=== PATIENT | male | born 1965 | race Caucasian/White ===

== ENCOUNTER 2018-02-01 08:34 | Outpatient (CLI) | payer OTHER, SELFPAY ==
[2018-02-01 11:45] LABS: Uric Acid 6.4 mg/dL (3.5-7.2)
== END 2018-02-01 08:54 ==
PROVIDERS: PCP Emergency Medicine; Visit Provider Emergency Medicine
DX: E79.0 Hyperuricemia without signs of inflammatory arthritis and tophaceous disease (principal)
CPT/HCPCS: 84550

== ENCOUNTER 2019-07-13 01:17 | Outpatient (CLI) | payer BC, SELFPAY ==
--- NOTE | 2019-07-13 08:00 | ETT_ITS ---
APPROVED REPORT Exam: Exercise Treadmill Patient Location: Out-Patient Room/Bed: Stress Nurse: Nadya Fuentes RN BMI: 29.79 Baseline Rhythm: Sinus Rhythm with abnormal R wave progression. Indications: Patient testing today for further risk stratification as he has a strong family history of heart disease. Patient states he had left sided ???burning/sharp??? chest pain approximately 2 wee ks ago after snow plowing with his 4 chapman. Medical History Medical History: Obstructive sleep apnea Cardiac Medications: Losartan Allergies: No known drug allergies Cardiac Risk Factors: HTN, FHX of CAD Previous Cardiac Procedures: None Pretest Chest Pain Characteristics: None Exercise History: Physically active Physical Disabilities: None Lung Sounds: Clear to auscultation Heart Sounds: Regular Stress Test Details Test: Exercise stress testing was performed using a Javier protocol. Rest Stress HR Resting HR Supine: 78 bpm Max Heart Rate (APMHR): 164 bpm Resting HR Standin bpm Target HR (85% APMHR): 139 bpm Max HR Achieved: 156 bpm % of APMHR: 95 HR response to stress: Normal HR response to stress BP Resting BP Supine: 146/86 mmHg Resting BP Standin/90 mmHg Max BP: 200/90 mmHg BP response to stress: Normal reponse to BP with recovery. Comment: Having difficulty hearing BP's with exercise. ECG Resting ECG: Sinus Rhythm Comment: No significant ST segment changes noted. Stress ECG: Sinus Tachycardia ST Change: No significant ST segment changes noted. Arrhythmia: None Recovery ECG: Sinus Rhythm Recovery ST Change: No significant ST segment changes noted. Recovery Arrhythmia: None Clinical Reason for Termination: Fatigue, Dyspnea Stress Symptoms: None Exercise duration: 10 min25 sec Highest Stage Reached: Stage 3: 3.4 mph at 14% grade. Exercise capacity: 12.49 METs Functional Capacity: Average Capacity Stress ECG Conclusion 1. The patient exercised for 10 minutes and 25 seconds (12 METS). Exercise was stopped due to fatigu e. Rate-pressure product was 22,000. 2. There was no evidence of ischemia on the ECG. There were no symptoms suggestive of ischemia. 3. The Parks Score ( 10) estimates an annual cardiovascular mortality of 0% and a five year survival o f 96%. Using the Parks Score there is a low probability of any angiographic coronary disease. Protocol Used: Javier Protocol Stress Test Summary STAGE Time (mins) Speed (mph) Grade (%) HR BP SYMPTOMS METS Supine 78 146/86 Standing 77 130/90 1 3 1.7 10 104 140/80 4.6 2 6 2.5 12 7 3 9 3.4 14 125 140/70 10.2 4 12 4.2 16 12.9 5 15 5.0 18 17.2 1 min recovery 118 200/90 3 min recovery 97 166/90 6 min recovery 90 156/86 9 min recovery 92 156/90
== END 2019-07-13 01:37 ==
PROVIDERS: PCP Emergency Medicine; Visit Provider Family Medicine
DX: R07.89 Other chest pain (principal); I10 Essential (primary) hypertension; Z82.49 Family history of ischemic heart disease and other diseases of the circulatory system
CPT/HCPCS: 93017

== ENCOUNTER 2019-12-09 15:07 | Outpatient (REF) | payer BC, SELFPAY ==
[2019-12-09 22:46] LABS: Uric Acid 6.8 mg/dL (3.5-7.2)
[2019-12-10 18:17] LABS: PSA, Screening 0.7 ng/mL (0.0-3.5)
== END 2019-12-09 15:27 ==
LOC: LBN 15:07
PROVIDERS: PCP Emergency Medicine; Visit Provider Emergency Medicine
DX: Z12.5 Encounter for screening for malignant neoplasm of prostate (principal); M10.9 Gout, unspecified; Z12.11 Encounter for screening for malignant neoplasm of colon
CPT/HCPCS: 84153; 84550

== ENCOUNTER 2021-01-23 03:42 | Outpatient (CLI) | payer BC, SELFPAY ==
[2021-01-23 10:35] LABS: Source Nasal/Nares
[2021-01-23 12:50] LABS: COVID-19 PCR Negative (Negative)
== END 2021-01-23 03:43 | disposition home or self-care (01) ==
LOC: LBO 03:43
PROVIDERS: PCP Emergency Medicine; Visit Provider Surgery
DX: Z20.822 Contact with and (suspected) exposure to COVID-19 (principal); Z01.818 Encounter for other preprocedural examination
CPT/HCPCS: 87635

== ENCOUNTER 2021-01-24 08:15 | Day surgery (SDC) | payer BC, SELFPAY ==
--- NOTE | 2021-01-23 09:56 | W.COLOREPORT ---
Colonoscopy Report Date of procedure: 01/24/21 Pre-op diagnosis general: CRC screen Post-op diagnosis procedure note: other (polyps and diverticula ) Surgeon: Jailene Cortez Anesthesia Type: General LMA/ETT Estimated blood loss (mL): 1 Pathology: none sent Complications: None Disposition: same day Prep: Miralax/Dulcolax Retraction Time: 12 mins Procedure Description: After informed consent was obtained the patient was taken to the procedure room and placed in a left decubitous position. Monitors were applied and a time out was done. The patients name, date of , procedure, allergies to medications and metal in their body was reviewed. The patient was then sedated. Once sedated and comfortable a rectal exam was done. External exam was normal. Internal exam revealed a normal sphincter tone and no palpable masses. The scope was then introduced and retrofelexed. Grade I internal hemorrhoids were identified. The scope was then advanced to the cecum w/out difficulty. The TI and appendiceal orifice were identified. There are x2 flat 5mm flat polyps. Both removed w/ a cold forcept in the cecum. He has another flat 1 cm polyp at 80 cm. This is removed with multiple bites of a hot forcep. A clip was placed over the defect. All specimen is retrieved and no bleeding is noted. This does have the appearance of the serrated. He does have a few small minor diverticula confined to the sigmoid colon. There is no signs of active bleeding or infection. The mucosa appears pink and healthy. The prep was good. The scope was then slowly retracted over 12 minutes back into the rectum. The scope was removed and the patient was woken up and taken back to Same day surgery in stable condition. The patient tolerated the procedure well and there were no immediate complications. Follow up: The patient should follow up in 5 years time, path pd, unless they develop changes in bowel habits or other new gastrointestinal complaints.
--- NOTE | 2021-01-23 09:57 | PDOC.DSDIS_ITS ---
Discharge Plan Disposition Patient Disposition: HOME Condition: Good Discharge Details Reason For Visit: colon scope Attending Provider: Jailene Cortez Primary Care Provider: Zeeshan Pendleton Home Meds and New Rx's Prescriptions: Continued sildenafil [Viagra] 100 mg tablet 100 mg PO DAILY PRN (Reason: sexual activity) Qty: 4 RF: 5 multivitamin 1 EACH capsule 1 ea PO DAILY RF: 0 apple cider vinegar 300 MG tablet 300 mg PO DAILY RF: 0 Tart Shoemaker Extract 1,000 MG capsule 1,000 mg PO DAILY RF: 0 losartan 100 mg tablet 100 mg PO QAM Qty: 90 RF: 3 indomethacin 50 mg capsule 50 mg PO TID PRN (Reason: gout) Qty: 30 RF: 2 allopurinol 100 mg tablet 100 mg PO DAILY Qty: 90 RF: 6 Discontinued polyethylene glycol 3350 17 gram/dose powder 238 g PO ONCE Qty: 238 RF: 0 bisacodyl [Dulcolax (bisacodyl)] 5 mg tablet,delayed release (DR/EC) 5 mg PO ONCE Qty: 4 RF: 0 Discharge Instructions Additional Instructions: DSU Colonoscopy Post- Op Instructions Instructions for Everyone who is given Anesthesia: For your safety, please do the following for the next twenty-four (24) hours: *Do Not operate a motor vehicle (car, truck, motorcycle, etc.) *Do Not drink alcoholic beverages or use any recreational drugs for the first 24 hours or while taking pain medications. The medications in your body may have a reaction that can be dangerous. *Do Not make any important decisions or sign any important papers. Findings:diverticula polyps x3 Follow up: My office will send a letter in approximately 3 weeks time, detailing as to what type of polyps we found, and when we want you to repeat colonoscopy. 1. No lifting over 20 pounds or strenuous activity for the first 24 hours after your procedure. After 24 hours there are no restrictions on your activity but you may feel fatigued for a few days. 2. After you arrive home you may have a light meal and return to your normal diet as you can tolerate it without feeling sick to your stomach. 3. You may have a bloated, gaseous feeling in your belly (abdomen) after a colonoscopy. Passing gas and belching will help. Walking or lying down on your left side with your knees flexed may relieve the discomfort. Call the office at [phone] (Office) or [phone] (Hospital) right away if you notice any of the following: a.Vomiting of blood or ?coffee ground stools?. b.Rectal bleeding 1Tbsp, blood clots or continuous bleeding. c.Severe belly (abdominal) pain. d.A hard distended belly (abdomen) and an inability to pass gas. 4. Please don?t expect to have a normal BM (bowel movement) for 2-3 days after your procedure. 5. If there are questions regarding the findings of your procedure, please contact your doctor 6. If you are unable to contact your doctor with a problem, contact the hospital at [phone]. 7. Continue all your regular medications unless directed otherwise. I understand the above instructions and have no questions. Signature of Patient or Adult Escort Name of Responsible Adult Escort Signature of Nurse Date/Time Activity:: see above Diet:: see above Discharge Orders Discharge Orders: Discharge Order (Routine); Ordered 01/23/21 Ordered By: Jailene Cortez DS: Diagnosis Discharge Diagnosis (1) Adenomatous polyps: Status: Acute (2) Diverticula of colon: Status: Acute
[2021-01-24 08:30] VITALS: BP 148/91; PULSE 77; RESP 18; TEMP 36.6; O2SAT 98
[2021-01-24] MEDS: Lactated Ringers 1,000 ML 80 ML IV (08:56)
--- NOTE | 2021-01-24 08:56 | W.ANESPRE ---
General Info Date of Service Date Performed: 01/24/21 Height: 5 ft 8 in Weight: 88.3 kg Body Mass Index (BMI): 29.5 Surgical Procedure: Operation Date: 01/24/21 10:20 Proposed Procedures Side Surgeon rocío Cortez, DO Meds Allergies and Home Medications Allergies Allergy/AdvReac Type Severity Reaction Status Date / Time No Known Allergies Allergy Verified 01/24/21 08:40 Home Medication Medication Instructions Recorded apple cider vinegar 300 mg PO DAILY 07/14/13 multivitamin 1 ea PO DAILY 07/14/13 sour shoemaker extract [Tart Shoemaker 1,000 mg PO DAILY 08/06/17 Extract] losartan 100 mg tablet 100 mg PO QAM #90 tab-cap 03/25/20 bisacodyl 5 mg tablet,delayed 5 mg PO ONCE #4 tab 06/16/20 release polyethylene glycol 3350 17 238 g PO ONCE #238 g 06/16/20 gram/dose oral powder indomethacin 50 mg capsule 50 mg PO TID PRN #30 tab-cap 06/22/20 sildenafil 100 mg tablet 100 mg PO DAILY PRN #4 tab 01/05/21 allopurinol 100 mg tablet 100 mg PO DAILY #90 tab-cap 01/17/21 Current Visit Medications: Current Medications Generic Name Dose Route Start Last Admin Trade Name Freq PRN Reason Stop Dose Admin Hyoscyamine Sulfate 0.125 mg 01/23/21 09:56 Hyoscyamine 0.125 Mg Sl/Oral/Chew SL DIRECTED PRN Ringer's Solution 1,000 mls @ 80 mls/hr 01/24/21 06:00 IV 02/22/21 23:59 INFUSION [facility] IV Miscellaneous Supplies 1 each 01/24/21 06:00 Iv Access IV 02/22/21 23:59 DIRECTED VARSHA Ondansetron HCl 4 mg 01/23/21 09:56 Ondansetron 4 Mg/2 Ml Vial IVP Q4H PRN PRN Nausea / Vomiting Sodium Chloride 0 ml 01/24/21 06:00 Normal Saline Flush 10 Ml Syr IV 02/22/21 23:59 PRN PRN Sodium Chloride 0 ml 01/24/21 06:00 Normal Saline 10 Ml Vial IJ 02/22/21 23:59 DIRECTED PRN Sterile Water 0 ml 01/24/21 06:00 Water,Injection,Sterile 10 Ml Vial IJ 02/22/21 23:59 DIRECTED PRN [facility] Active Problems Active Problems: Problem Status Onset Code Murmur, cardiac R01.1 Impingement syndrome of right shoulder M75.41 Actinic keratosis due to exposure to sunlight L57.0, X32.XXXA Colon cancer screening Z12.11 H/O nonmelanoma skin cancer 07/14/13 Z85.828 Obstructive sleep apnea syndrome G47.33 Nasal septal deviation J34.2 Lazy eye H53.009 Heavy alcohol use 12/07/15 Z78.9 Gouty arthritis of toe M10.9 Gout 06/04/12 M10.9 Family history of heart disease Z82.49 Essential hypertension I10 Medical History Medical History Actinic keratosis due to exposure to sunlight Colon cancer screening Impingement syndrome of right shoulder Murmur, cardiac Surgical History Surgical History Appendectomy 03/16/14 Excision, Skin Mass CANCER Tobacco Smoking/Tobacco Use Status: Never Smokeless tobacco user: snus Passive smoking exposure: Yes Second hand exposure: Yes Alcohol Alcohol Intake: current Alcohol intake frequency: 3 or more drinks per day Alcohol type: beer Substance Use Substance use: Never Substance use type: marijuana Vital Signs and Lab Results Vital Signs Most Recent Vital Signs in EMR: Most Recent Vital Signs Temp Pulse Resp BP Pulse Ox 36.6 C 77 18 148/91 H 98 01/24/21 08:30 01/24/21 08:30 01/24/21 08:30 01/24/21 08:30 01/24/21 08:30 Lab Results Blood Type / Crossmatch: No Data to Display Complete Blood Count: No Data to Display Complete Metabolic Panel: No Data to Display Liver Function Panel: No Data to Display Coagulation Panel: No Data to Display Cardiac Panel: No Data to Display Arterial Blood Gas: No Data to Display Venous Blood Gas: No Data to Display Pancreas Panel: No Data to Display Thyroid Panel: No Data to Display Infectious Disease: Coronavirus (COVID-19)(PCR) Negative (Negative) 01/23/21 09:05 01/23/21 Coronavirus 2019 Source Nasal/Nares 01/23/21 09:05 01/23/21 Blood Cultures: No Data to Display Toxicology Panel: No Data to Display Imaging and Studies Imaging and Studies Stress Test Summary: 07/13/19: Stress ECG Conclusion 1. The patient exercised for 10 minutes and 25 seconds (12 METS). Exercise was stopped due to fatigue. Rate-pressure product was 22,000. 2. There was no evidence of ischemia on the ECG. There were no symptoms suggestive of ischemia. 3. The Parks Score ( 10) estimates an annual cardiovascular mortality of 0% and a five year survival of 96%. Using the Parks Score there is a low probability of any angiographic coronary disease. Anesthesia Assessment and Plan Anesthesia History Personal History: No History of Anesthesia Complications Family History: No Family History of Anesthesia Complications Exercise Tolerance Exercise Tolerance: Metabolic Equivalents>4 Pertinent Negatives Pertinent Negatives: No Symptoms of GERD Cardiac & Pulmonary Exam Cardiac Exam: Normal S1/S2 Heart Sounds Pulmonary Exam: Clear Bilateral Breath Sounds Airway Exam Known Difficult Airway: No Mallampati Class: 2 Mouth Opening: Normal (> 3cm) Thyromental Distance: Greater than 3 cm Neck Range of Motion: Full ROM Neck Circumference: Normal Teeth Condition: Normal Dentition ASA Classification ASA Score: ASA 2 Emergency Case?: No NPO Status NPO Status: NPO Clears >2 hours, Solids >8 hours Anesthesia Plan Resuscitation Status: Full Code Anesthesia Technique: General Anesthesia Airway Planned: Natural Airway Monitors Used: Standard Monitors
[2021-01-24 09:36] VITALS: BMI 29.5
--- NOTE | 2021-01-24 10:07 | BOWEL_PTH ---
PATIENT: Ector Adames LOC: [facility] U#:[id number] AGE/SX: 55/M ROOM: RE01/24/[address]: Jailene Cortez : 1965 BED: DIS: 01/24/2021 SPEC #: [id number] RECD: 01/24/21 12:43 STATUS: RUFINO REQ #: [id number] KANDIS: 01/24/21 10:[address]: Jailene Cortez DEPT: Surgical Specimen RECD BY: Ana Pulido ENTERED: 01/24/21 12:44 SP TYPE: Bowel OTHR DR: Zeeshan Pendleton DO Tissues: 1 - BIOPSY BOWEL 2 - BIOPSY BOWEL Procedures: GROSS AND MICRO LEVEL 4 Comments: [id number]
[2021-01-24 10:37] VITALS: BP 105/60; PULSE 62; RESP 16; TEMP 36; O2SAT 97
[2021-01-24 11:05] VITALS: BP 107/68; PULSE 58; RESP 16; TEMP 36; O2SAT 98
--- NOTE | 2021-01-24 15:53 | W.ANESPOSTOP ---
Postoperative Evaluation Date, Time and Location Date Performed: 01/24/21 Time Performed: 11:10 Patient Location: Day Surgery Unit Vital Signs Most Recent Imported Vital Signs: Most Recent Vital Signs Temp Pulse Resp BP Pulse Ox 36 C L 58 L 16 107/68 98 01/24/21 11:05 01/24/21 11:05 01/24/21 11:05 01/24/21 11:05 01/24/21 11:05 Pain Score Most Recent Pain Score: Most Recent Pain Score Pain Level 0 01/24/21 11:05 Assessment Mental Status: Awake (Alert & Oriented to Patient Baseline) Airway and Respiratory Function: Patent airway with normal (patient baseline) respiratory exam Cardiovascular Function: Hemodynamically Stable Hydration Status: Adequately Hydrated Nausea & Vomiting: No Nausea or Vomiting Pain: Pt. Denies Any Pain Peripheral Nerve Block: Patient did not receive a nerve block
== END 2021-01-24 08:16 | disposition home or self-care (01) ==
PROVIDERS: PCP Emergency Medicine; Visit Provider Surgery
PROC: 0DJD8ZZ Inspection of Lower Intestinal Tract, Via Natural or Artificial Opening Endoscopic (ICD-10-PCS; CPT 45378; principal; 2021-01-24 10:15)
DX: Z12.11 Encounter for screening for malignant neoplasm of colon (principal); D12.0 Benign neoplasm of cecum; K57.30 Diverticulosis of large intestine without perforation or abscess without bleeding; I10 Essential (primary) hypertension; D12.5 Benign neoplasm of sigmoid colon
CPT/HCPCS: 45384; 45380; 88305; J2704

== ENCOUNTER 2021-06-27 20:07 | Outpatient (CLI) | payer BC, SELFPAY ==
--- NOTE | 2021-06-27 15:00 | DI.RAD_ITS ---
Exam(s) XR SHOULDER RT COMPLETE 2+V EXAM: XR SHOULDER RT COMPLETE 2+V CLINICAL HISTORY: right shoulder pain, M25.511. TECHNIQUE: 2D digital imaging was performed. COMPARISON: No exams were available for comparison FINDINGS: No evidence of fracture or dislocation or abnormal soft tissue calcifications. No obvious degenerati ve changes in the glenohumeral joint. Mild degenerative changes in the AC joint. No osseous lesions. IMPRESSION: DATA REPOSITORY: RADIATION DOSE DELIVERED:
== END 2021-06-27 20:27 ==
PROVIDERS: PCP Emergency Medicine; Visit Provider Emergency Medicine
DX: M25.511 Pain in right shoulder (principal)
CPT/HCPCS: 73030

== ENCOUNTER → 2021-08-17 01:09 | Outpatient (CLI) | payer BC, SELFPAY ==
--- NOTE | 2021-08-17 15:35 | DI.MRI_ITS ---
Exam(s) MR UPPER JOINT RT WO EXAM: MR UPPER JOINT RT WO CLINICAL HISTORY: Weakness,RT ROTATOR CUFF TEAR,M75.101. TECHNIQUE: Multiplanar multisequence MRI was performed. COMPARISON: CR XR SHOULDER RT COMPLETE 2+V from 06/27/2021 FINDINGS: BONES: There is no fracture or contusion pattern. Small subchondral cysts are seen in the greater tub erosity. JOINTS: Moderate degenerative changes are seen at the acromioclavicular joint. There is superior sub luxation of the humeral head narrowing the acromial humeral interval consistent with a rotator cuff t ear. TENDONS: Supraspinatus: There is a complete tear of the supraspinatus tendon with retraction almost to the lev el of the glenohumeral joint. Infraspinatus: There is tendinosis of the infraspinatus tendon. There also appears to be a partial t ear of the infraspinatus tendon anteriorly. Subscapularis: There is tendinosis of the subscapularis tendon. Teres Minor: Unremarkable. Biceps and [place]: There is medial subluxation of the biceps tendon and tendinosis of the long head. MUSCLES: There is mild fatty atrophy of the subscapularis and supraspinatus muscles. GLENOID LABRUM: Unremarkable on this noncontrast examination. SOFT TISSUES: Unremarkable. LIGAMENTS: Medial subluxation of the biceps tendon suggesting a tear of the transverse ligament. OTHER: There is fluid in the subacromial subdeltoid bursa consistent with a full-thickness rotator cu ff tear. IMPRESSION: 1. There is a complete tear of the supraspinatus tendon with retraction almost to the level of the gl enohumeral joint. 2. Partial tear of the superior medial aspect of the infraspinatus tendon. 3. Tendinosis of the infraspinatus and subscapularis tendons. 4. Medial subluxation of the biceps tendon. 5. Superior subluxation of the humeral head and fluid in the subacromial subdeltoid bursa consistent with a rotator cuff tear. DATA REPOSITORY:
== END ==
PROVIDERS: PCP Family Medicine; Visit Provider Student in an Organized Health Care Education/Training Program
DX: M25.511 Pain in right shoulder; M75.101 Unspecified rotator cuff tear or rupture of right shoulder, not specified as traumatic; M75.81 Other shoulder lesions, right shoulder; M67.813 Other specified disorders of tendon, right shoulder
CPT/HCPCS: 73221

== ENCOUNTER 2021-09-27 02:17 | Outpatient (CLI) | payer BC, SELFPAY ==
[2021-09-27 10:14] LABS: Source Nasal/Nares
[2021-09-27 16:03] LABS: COVID-19 PCR Negative (Negative)
== END 2021-09-27 02:18 | disposition home or self-care (01) ==
LOC: LBO 02:17
PROVIDERS: PCP Nurse Practitioner Family; Visit Provider Student in an Organized Health Care Education/Training Program
DX: Z20.822 Contact with and (suspected) exposure to COVID-19 (principal); Z01.818 Encounter for other preprocedural examination
CPT/HCPCS: 87635

== ENCOUNTER 2021-09-27 02:41 | Outpatient (CLI) | payer BC, SELFPAY ==
[2021-09-27 08:41] LABS: Abs Immature Grans 0.02 10^3/uL (0.0-0.06); Absolute Basophil Count 0.04 10^3/uL (0.0-0.2); Absolute Eosinophil Count 0.11 10^3/uL (0.0-0.7); Absolute Lymphocyte Count 0.67 10^3/uL (1.2-3.4); Absolute Monocyte Count 0.36 10^3/uL (0.1-0.8); Absolute Neutrophil Count 3.34 10^3/uL (1.2-6.7); Basophils % 0.9; Eosinophils % 2.4; HCT 40.9 % (40.0-50.0); HGB 14.4 g/dL (13.5-17.5); Immature Grans % 0.4; Lymphocytes % 14.8; MCH 33.6 pg (27.0-33.0); MCHC 35.2 % (32.0-36.0); MCV 95 fL (80-95); MPV 10.9 fL (8.0-11.0); Monocytes % 7.9; Neutrophils % 73.6; Platelet Count 203 10^3/uL (130-400); RBC 4.29 10^6/uL (4.36-5.78); RDW 12.3 % (11.8-14.1); RDW-SD 42.7 fL; WBC 4.54 10^3/uL (4.4-10.8)
[2021-09-27 08:58] LABS: ALT 29 U/L (16-63); AST 15 U/L (15-37); Alkaline Phosphatase 82 U/L (46-116); Anion Gap 8.2 mmol/L (3-11); BUN 18 mg/dL (7-18); Bilirubin, Total 1.2 mg/dL (0.2-1.0); CO2 27.8 mmol/L (21.0-32.0); CREATININE 1.2 mg/dL (0.70-1.30); Calcium 9.3 mg/dL (8.5-10.1); Calculated LDL 113 mg/dL (<100); Chloride 105 mmol/L (98-107); Cholesterol 195 mg/dL (<200); Glucose 101 mg/dL (74-106); HDL Cholesterol 52 mg/dL (40-60); Potassium 4.3 mmol/L (3.5-5.1); Sodium 141 mmol/L (136-145); Total Protein 7.6 g/dL (6.4-8.2); Triglyceride 150 mg/dL (<150)
[2021-09-27 09:06] LABS: Uric Acid 7.2 mg/dL (3.5-7.2)
[2021-09-27 18:04] LABS: PSA, Screening 0.9 ng/mL (<=3.5)
[2021-09-28 10:10] LABS: HIV-1/2 Ag & Ab Screen Negative (Negative)
[2021-09-28 10:20] LABS: Hepatitis C Ab w Rflx HCV PCR Negative (Negative)
== END 2021-09-27 02:42 | disposition home or self-care (01) ==
LOC: LBO 02:41
PROVIDERS: PCP Nurse Practitioner Family; Visit Provider Family Medicine
DX: I10 Essential (primary) hypertension (principal); M10.9 Gout, unspecified; Z11.4 Encounter for screening for human immunodeficiency virus [HIV]; Z11.59 Encounter for screening for other viral diseases; Z12.5 Encounter for screening for malignant neoplasm of prostate
CPT/HCPCS: 36415; 80053; 80061; 84153; 86803; 87389; 84550; 85025

== ENCOUNTER 2021-09-29 06:04 | Day surgery (SDC) | payer BC, SELFPAY ==
[2021-09-29] VITALS (8 sets, daily range): BP systolic 100–146; BP diastolic 61–93; PULSE 71–79; RESP 16–23; TEMP 36.2–36.7; O2SAT 93–98; BMI 30.5
--- NOTE | 2021-09-29 06:18 | W.ANESPRE ---
General Info Date of Service Date Performed: 09/29/21 Height: 5 ft 8 in Weight: 91.172 kg Body Mass Index (BMI): 30.5 Surgical Procedure: Operation Date: 09/29/21 07:40 Proposed Procedure Side Surgeon p Shoulder Rotator Cuff Arthroscopic w/Extensive Debridement,Bicep Tenodesis,Subacromial Decompression, Poss. Allograft Superior Capsular Reconstruction Right Marco Bailey MD Meds Allergies and Home Medications Allergies Allergy/AdvReac Type Severity Reaction Status Date / Time No Known Allergies Allergy Verified 09/29/21 06:44 Home Medication Medication Instructions Recorded apple cider vinegar 300 mg tablet 300 mg PO DAILY 07/14/13 multivitamin 1 ea PO DAILY 07/14/13 sour shoemaker extract 1,000 mg 1,000 mg PO DAILY 08/06/17 capsule (Tart Shoemaker Extract) sildenafil 100 mg tablet (Viagra) 100 mg PO DAILY PRN sexual 01/05/21 activity #4 tabs allopurinol 100 mg tablet 100 mg PO DAILY #90 tab-caps 01/17/21 losartan 100 mg tablet 100 mg PO QAM #90 tab-caps 04/20/21 aspirin 81 mg tablet,delayed 81 mg PO DAILY Prevent blood clot 09/29/21 release 14 days #14 tabs naproxen 250 mg tablet 250 - 500 mg PO BID PRN #40 tabs 09/29/21 oxycodone 5 mg tablet 5 - 10 mg PO Q4H PRN moderate to 09/29/21 severe pain #18 tabs Current Visit Medications: Current Medications Generic Name Dose Route Start Last Admin Trade Name Freq PRN Reason Stop Dose Admin Ringer's Solution 1,000 mls @ 100 mls/hr 09/29/21 06:00 IV 10/28/21 23:59 INFUSION VARSHA Cefazolin Sodium/Dextrose 2 gm in 50 mls @ 100 mls/hr 09/29/21 06:00 Ancef Duplex IVPB 09/29/21 16:00 PREOP VARSHA IV Miscellaneous Supplies 1 each 09/29/21 06:00 Iv Access IV 10/28/21 23:59 DIRECTED VARSHA Sodium Chloride 0 ml 09/29/21 06:00 Normal Saline Flush 10 Ml Syr IV 10/28/21 23:59 PRN PRN Sodium Chloride 0 ml 09/29/21 06:00 Normal Saline 10 Ml Vial IJ 10/28/21 23:59 DIRECTED PRN Sterile Water 0 ml 09/29/21 06:00 Water,Injection,Sterile 10 Ml Vial IJ 10/28/21 23:59 DIRECTED PRN PFSH Active Problems Active Problems: Problem Status Onset Code Amblyopia of left eye H53.002 Rotator cuff tear, right M75.101 Adenomatous polyps D36.9 Murmur, cardiac R01.1 Actinic keratosis due to exposure to sunlight L57.0, X32.XXXA H/O nonmelanoma skin cancer 07/14/13 Z85.828 Obstructive sleep apnea syndrome G47.33 Nasal septal deviation J34.2 Heavy alcohol use 12/07/15 Z78.9 Gout 06/04/12 M10.9 Essential hypertension I10 Surgical History Surgical History Appendectomy 03/16/14 Excision, Skin Mass CANCER History of colonoscopy with polypectomy (~01/24/21) Tobacco Smoking/Tobacco Use Status: Never Smokeless tobacco user: snus Passive smoking exposure: Yes Second hand exposure: Yes Alcohol Alcohol Intake: current Alcohol intake frequency: 3 or more drinks per day Alcohol type: beer Substance Use Substance use: Rarely Substance use type: marijuana Vital Signs and Lab Results Lab Results Blood Type / Crossmatch: No Data to Display Complete Blood Count: White Blood Count 4.54 10^3/uL (4.4-10.8) 09/27/21 08:30 Red Blood Count 4.29 10^6/uL (4.36-5.78) L 09/27/21 08:30 Hemoglobin 14.4 g/dL (13.5-17.5) 09/27/21 08:30 Hematocrit 40.9 % (40.0-50.0) 09/27/21 08:30 Platelet Count 203 10^3/uL (130-400) 09/27/21 08:30 Complete Metabolic Panel: Sodium Level 141 mmol/L (136-145) 09/27/21 08:30 Potassium Level 4.3 mmol/L (3.5-5.1) 09/27/21 08:30 Chloride Level 105 mmol/L (98-107) 09/27/21 08:30 Carbon Dioxide Level 27.8 mmol/L (21.0-32.0) 09/27/21 08:30 Blood Urea Nitrogen 18 mg/dL (7-18) 09/27/21 08:30 Creatinine 1.2 mg/dL (0.70-1.30) 09/27/21 08:30 Estimated GFR/1.73 m2 >= 60.00 (mL/min/1.73m2) 09/27/21 08:30 Calcium Level 9.3 mg/dL (8.5-10.1) 09/27/21 08:30 Albumin 4.0 g/dL (3.4-5.0) 09/27/21 08:30 Glucose Level 101 mg/dL (74-106) 09/27/21 08:30 Liver Function Panel: Alanine Aminotransferase (ALT/SGPT) 29 U/L (16-63) 09/27/21 08:30 Aspartate Amino Transf (AST/SGOT) 15 U/L (15-37) 09/27/21 08:30 Coagulation Panel: No Data to Display Cardiac Panel: No Data to Display Arterial Blood Gas: No Data to Display Venous Blood Gas: No Data to Display Pancreas Panel: No Data to Display Thyroid Panel: No Data to Display Infectious Disease: Coronavirus (COVID-19)(PCR) Negative (Negative) 09/27/21 08:07 Coronavirus 2019 Source Nasal/Nares 09/27/21 08:07 HIV (1&2) Ag and Ab, 4th Generation Negative (Negative) 09/27/21 08:30 Hepatitis C Antibody Negative (Negative) 09/27/21 08:30 Blood Cultures: No Data to Display Toxicology Panel: No Data to Display Imaging and Studies Imaging and Studies Study information below may be from another EMR and interpreted by another provider. Please see original notes in EMR for more complete details. Stress Test Summary: 07/13/19: Stress ECG Conclusion 1. The patient exercised for 10 minutes and 25 seconds (12 METS). Exercise was stopped due to fatigue. Rate-pressure product was 22,000. 2. There was no evidence of ischemia on the ECG. There were no symptoms suggestive of ischemia. 3. The Parks Score ( 10) estimates an annual cardiovascular mortality of 0% and a five year survival of 96%. Using the Parks Score there is a low probability of any angiographic coronary disease. Anesthesia Assessment and Plan Anesthesia History Personal History: No History of Anesthesia Complications Family History: No Family History of Anesthesia Complications Exercise Tolerance Exercise Tolerance: Metabolic Equivalents>4 Cardiac & Pulmonary Exam Cardiac Exam: Heart Murmur Present Pulmonary Exam: Clear Bilateral Breath Sounds Implantable Cardiac Device Does patient have a Pacemaker or an ICD?: No Airway Exam Known Difficult Airway: No Mallampati Class: 2 Mouth Opening: Normal (> 3cm) Thyromental Distance: Greater than 3 cm Neck Range of Motion: Full ROM Neck Circumference: Normal Teeth Condition: Normal Dentition ASA Classification ASA Score: ASA 2 Emergency Case?: No NPO Status NPO Status: NPO Clears >2 hours, Solids >8 hours Anesthesia Plan Resuscitation Status: Full Code Anesthesia Technique: General Anesthesia Airway Planned: Endotracheal Tube Pain Management: Surgeon and patient request nerve block Monitors Used: Standard Monitors Preoperative Comments:: 56 yo male for right shoulder arthroscopy. Sig PMHx: HTN, EtOH daily, MADIE. skin lesion taken off on Saturday that is on his back.
[2021-09-29] MEDS: Lactated Ringers 1,000 ML 100 ML IV (07:04)
--- NOTE | 2021-09-29 07:58 | W.ANESNERVE ---
Nerve Block Single Injection Procedure Date and Time Date Performed: 09/29/21 Procedure Start: 07:12 Location Where Procedure Performed Procedure Location: Day Surgery Unit Reason Performed: Postoperative Analgesia Requesting Provider: Marco Bailey Timeout Performed Timeout Performed: Yes Monitoring Used ECG, Blood Pressure and SpO2 Sterility Sterility: Hand Hygiene, Surgical Cap, Surgical Mask, Sterile Gloves and Chlorhexidine Sedation Given During Procedure Sedation Given (Indicate Dose Given): Versed IV Dose:: 2 mg Patient Mental Status Patient Mental Status: Sedate with meaningful communication Nerve Block 1st Nerve Block: Laterality: Right Block Type: Interscalene Needle / Catheter Used: 100mm SonoPlex II Local Anesthetic Bolus (Indicate Dose Given): Lidocaine used for local infiltration of skin, Injected in 3-5ml increments after negative blood aspiration and Bupivacaine 0.5% Dose:: 15 mL Additives (Indicate Dose Given): Epinephrine to make 1:200,000 (5mcg/ml) Dose:: 30 mcg, Decadron Dose:: 2 mg and Precedex Dose:: 40 mcg Ultrasound: Sterile probe cover and gel used Ultrasound Image Saved?: Yes Nerve Stimulator: Not Used Paresthesia: None Procedure Tolerated: No Complications Procedure Outcome: Successful Performed By: Ulisses Luu
[2021-09-29] MEDS: ceFAZolin 2 GM/50 ML BAG IVPB (08:01)
[2021-09-29] MEDS: Lidocaine 1% Multi-Dose W/EPI 1/100,000 50 ML VIAL (09:34)
[2021-09-29] MEDS: EPINEPHrine 30 MG/30 ML VIAL ×2 (11:20→11:21)
--- NOTE | 2021-09-29 11:30 | PDOC.DSDIS_ITS ---
Discharge Plan Disposition Patient Disposition: HOME Condition: Stable Discharge Details Reason For Visit: Right shoulder surgery Attending Provider: Marco Bailey Primary Care Provider: Sesar Richardson Home Meds and New Rx's Prescriptions: New aspirin 81 mg tablet,delayed release (DR/EC) 81 mg PO DAILY 14 Days Qty: 14 0RF naproxen 250 mg tablet 250 - 500 mg PO BID PRNQty: 40 0RF Rx Instructions: take with a meal oxycodone 5 mg tablet 5 - 10 mg PO Q4H MDD 30 mg PRN (Reason: moderate to severe pain) Qty: 18 0RF Continued sildenafil [Viagra] 100 mg tablet 100 mg PO DAILY PRN (Reason: sexual activity) Qty: 4 5RF Rx Instructions: administer 30 minutes to 4 hours before activity multivitamin 1 EACH capsule 1 ea PO DAILY apple cider vinegar 300 MG tablet 300 mg PO DAILY Tart Shoemaker Extract 1,000 MG capsule 1,000 mg PO DAILY allopurinol 100 mg tablet 100 mg PO DAILY Qty: 90 6RF losartan 100 mg tablet 100 mg PO QAM Qty: 90 3RF Discharge Instructions Additional Instructions: Surgery: Right shoulder arthroscopy with allograft superior capsular reconstruction, rotator cuff repair, biceps relocation tenodesis, extensive debridement, and subacromial decompression. Activity: For 6 weeks, you should keep your arm at your side in a neutral position at all times except for physical therapy. Do not try to lift or raise your arm using your own muscles. You should use the sling whenever you are out of the house. You may have to adjust the abduction pillow or remove it for comfort. At home it is best to remove the sling and rest the arm on a pillow at your side or support the operative side with your other hand. You may allow the arm to dangle at your side. A physical therapy prescription will be sent electronically to begin in about 3 weeks. CONSERVATIVE protocol. Prescriptions: Aspirin 81 mg take 1 daily to prevent a blood clot for 2 weeks Naproxen 250 mg take 1-2 every 12 hours with a meal as needed for moderate pain Oxycodone 5 mg take 1-2 every 4-6 hours as needed for severe pain You may use eryt-noq-diwekkp Tylenol (acetaminophen) as needed for mild pain. These pain medications may be taken all at once or in different combinations as needed. Also, recommend Colace (docusate) as a stool softener as surgery and pain medicine cause constipation. You may try llff-sau-ncgzjwb diphenhydramine (Benadryl) 25-50 mg nightly as a sleep aid Dressings: Remove shoulder bandage after 3 days. Leave the sticky Steri-Strips in place until they fall off or remove them after you shower. Cover the incisions with Band-Aids or leave them open to air. You may shower after 5 days. Follow-up: 10-[address] Bailey You may take off the leg compression stockings this evening at home. You may also leave them on a few days longer if you have a history of leg swelling or edema. Let us know right away if you develop any redness, drainage, fevers, chest pain, or trouble breathing. Do not drink alcohol or drive for at least 24 hours after anesthesia. Please call the office during business hours with any questions or concerns. Referrals: Marco Bailey MD [ [facility]YS[facility]] - Discharge Orders Discharge Orders: Discharge Order (Routine); Ordered 09/29/21 Ordered By: Marco Bailey DS: Diagnosis Discharge Diagnosis (1) Rotator cuff tear, right: Status: Acute (2) Tendonitis of long head of biceps brachii of right shoulder: Status: Acute (3) Bursitis of right shoulder: Status: Acute
--- NOTE | 2021-09-29 11:57 | W.PM.OP ---
Date of service: 09/29/21 Time of Service: 08:00 Operative Note Operative Note DATE OF PROCEDURE: 09/29/21 PRE-OP DIAGNOSIS: Right: 1. Rotator cuff tear 2. LHB medial subluxation/ tendinopathy 3. Bursitis 4. Superior humeral head instability POST-OP DIAGNOSIS: same PROCEDURE: Right: 1. Rotator cuff repair, CPT# 30359. This involved repair of the infraspinatus using anchors and sutures to reattach the rotator cuff back to the greater tuberosity and superior capsular reconstruction 2. Arthroscopic superior capsular reconstruction, CPT #62811: This involved dermal allograft reconstruction of deficient superior capsule to maintain glenohumeral stability and prevent superior humeral migration. 3. Arthroscopic biceps tenodesis, CPT# 93252. This involved arthroscopically relocating, suturing, and attaching the long head of the biceps tendon back to the superior aspect of the bicipital groove from its medially dislocated position. 4. Extensive debridement, CPT# 18997. This involved using arthroscopic hand instruments, power instruments, and radiofrequency instruments to release the long head of the biceps tendon and debride areas of labral tearing, synovitis, and chondromalacia about the biceps groove humeral head as well as debriding significant anterior and central partial rotator cuff tearing and interval scarring working within the glenohumeral joint anteriorly, superiorly and posteriorly. 5. Subacromial decompression, CPT# 21770. This involved using arthroscopic power instruments and a radiofrequency wand to complete a bursectomy. The assistant principal was medically required in order to help assist in techniques above, which require positioning the arm, holding the arthroscope, and manipulating multiple instruments and sutures at the same time. This cannot be done without the help of an experienced assistant principal. SURGEON: Marco Bailey [employer]OCIATE: David Padron ANESTHESIA TYPE: General LMA/ETT and Primary Nerve Block Refer to Anesthesia Record ESTIMATED BLOOD LOSS: 10 PATHOLOGY: none sent COMPLICATIONS: None Patient was transported to: PACU Patient's condition: stable Implants: Arthrex: 4.75mm SwiveLocks x 4, 3.9 mm corkscrew anchors x2 Indications: The patient was diagnosed with the above conditions and appropriately indicated for surgical intervention. Please see complete medical record for details. Findings: Exam under anesthesia: Full range of motion with no anterior or posterior instability Glenohumeral joint: Significant synovitis anteriorly superiorly moderately posteriorly. No significant SLAP tear. Mild long head biceps Frain type tendinosis with obvious medial dislocation of the biceps out of the bicipital groove over a largely intact subscapularis. Obvious superior rotator cuff void consistent of the supraspinatus. Subacromial space: Moderate bursitis. Complete supraspinatus deficiency with retraction to the level of the superior labrum. Minimal excursion on the remnant minimal tendon stump available. Significant tissue left behind on the greater tuberosity from this medial transtendinous supraspinatus tear. Largely intact infraspinatus with partial upper margin medial articular tearing. Procedure Description: In the operating room, general anesthesia was induced. Bilateral shoulders were examined. The patient was positioned in the beachchair position. All bony prominences were well-padded. Preoperative antibiotics were administered. The shoulder was prepped and draped in the usual sterile fashion. The correct patient, procedure, and side of the procedure were all verified prior to incision. Starting through the posterior portal a standard complete diagnostic arthroscopy was performed of the glenohumeral joint including inspection of the long head of the biceps, anterior and superior labrum, subscapularis tendon, supraspinatus and infraspinatus tendons, and axillary recess. The glenoid and humeral head cartilage as well as the posterior labrum were inspected from an anterior viewing portal. Significant findings and interventions noted above. Starting through the posterior portal, the arthroscope was directed into the subacromial space. A lateral 50 yard line lateral portal was created. A combination of power instruments and a radiofrequency ablator were used to debride bursitis anteriorly, posteriorly, and laterally as well as expose the undersurface of the acromion. The coracoacromial ligament was preserved. The bursectomy was completed viewing laterally and working from posteriorly and the rotator cuff was thoroughly inspected with findings noted above. Cannulas were inserted at the superior anterolateral, superior lateral, and 50 yard line portals. The rotator cuff was thoroughly mobilized and debrided. The greater tuberosity was debrided and a small tuboplasty performed to reduce bony impingement on the greater tuberosity as well as optimize bone tendon/graft healing. The supraspinatus tendon remnant still demonstrated poor excursion about 50% [address] way to the medial margin footprint. There was no reasonable way to repair the supraspinatus. The tissue did not move from posterior to anterior either. The anterior margin infraspinatus could be well reduced over the medial greater tuberosity but did not have any necessary significant posterior and anterior excursion. The supraspinatus remnant was then debrided from the lateral greater tuberosity to prepare for reconstruction. The biceps tendon was identified medially dislocated from the bicipital groove. The transverse humeral ligament upper margin was released as well as scarring of the biceps medially. Hand instruments were used to relocate the biceps to the bicipital groove. The supraspinatus was debrided and the superior and anterior superior margin of the glenoid exposed while preserving the superior labrum and rotator cuff as much as possible to allow for glenoid anchor placement. Through an advisor and anterior percutaneous portals to glenoid knotless corkscrew anchors were inserted between the superior labrum intact biceps anchor and residual rotator cuff. The anterior medial row anchor was placed at the anterior medial greater tuberosity margin just posterior and adjacent to the reduced biceps tendon. A knotless anchor was chosen here. The bone was punched and then tapped owing to hard bone and the knotless anchor inserted. The knotless mechanism was then used with the repair stitch passed under and then over circumferentially around the biceps tendon before being shuttled back through the anchor and achieving moderate compression completing the relocation type tenodesis. A percutaneous portal was used to place the posterior medial row anchor off the articular margin and at the upper margin of the infraspinatus tearing. A knotless anchor was placed here as well for later infraspinatus to graft repair. The SCR measuring guide was used to measure dimensions for the dermal graft which measured about 15 mm on the glenoid and medial row, 27 mm anterior, and 30 posterior. The graft was prepared on the back table prepunching for suture tape medial row passage and leaving about 5 mm cuff medially anteriorly posteriorly and 12 mm laterally. The medial row suture was then retrieved out a 12 x 3 mm passport and passed through the graft maintaining appropriate medial and posterior sutures. The posterior sutures contain the knotless repair as well. Next, the anterior glenoid repair and shuttle stitch was retrieved from the corkscrew anchor and shuttled up and down in horizontal mattress through the medial aspect of the graft and then back through the anchor. This was repeated for the posterior glenoid knotless anchor. The graft was folded carefully and delivered into the shoulder while removing slack from the system. The graft deployed well and tension was achieved on the glenoid anchors carefully tucking the graft between the superior labrum and rotator cuff remnant. Tension was removed from the medial row sutures and the arm rotated for anterior lateral row anchor placement. A FiberTape from the anterior and posterior medial row anchors were retrieved and then secured to a SwiveLock. The remaining fiber tapes from the anterior posterior anchors were retrieved and the arm rotated for placement of the posterior lateral anchor. The graft demonstrated excellent coverage of the superior capsular and rotator cuff void. Final tensioning was set on the glenoid anchors and these sutures cut. The graft was well opposed to the infraspinatus posteriorly and to the repaired biceps anteriorly. A #2 FiberWire was then passed in a simple stitch fashion through the central defect between the infraspinatus and reconstruction and repair together using an [facility] arthroscopic knot. Lastly, the knotless repair mechanism from the posterior medial row anchor was shuttled up through the partial infraspinatus tearing and then back through the anchor with the graft tucked posteriorly under the infraspinatus as it was secured and repaired back to the greater tuberosity using the knotless mechanism. The repairs and reconstructions were all inspected with excellent fixation stable through range of motion. The shoulder was drained of arthroscopic fluid. All portal sites were copiously irrigated. These incisions were closed using 3-0 Monocryl in a buried fashion and then covered with Mastisol, Steri-Strips, Xeroform, dry gauze, and ABDs. The dressings were covered and secured with Medipore tape. The operative extremity was placed into a sling for immobilization. The patient awoke from anesthesia without complication and was transferred to the recovery room in a stable condition.
--- NOTE | 2021-09-29 12:26 | W.ANESPOSTOP ---
Postoperative Evaluation Date, Time and Location Date Performed: 09/29/21 Time Performed: 12:10 Patient Location: Day Surgery Unit Vital Signs Most Recent Imported Vital Signs: Most Recent Vital Signs Temp Pulse Resp BP Pulse Ox 36.2 C L 79 23 102/65 93 09/29/21 12:08 09/29/21 12:08 09/29/21 12:08 09/29/21 12:08 09/29/21 12:08 Pain Score Most Recent Pain Score: Most Recent Pain Score Pain Level 0 09/29/21 12:08 Assessment Mental Status: Awake (Alert & Oriented to Patient Baseline) Airway and Respiratory Function: Patent airway with normal (patient baseline) respiratory exam Cardiovascular Function: Hemodynamically Stable Hydration Status: Adequately Hydrated Nausea & Vomiting: No Nausea or Vomiting Pain: Pain is tolerable per patient Peripheral Nerve Block: Regional nerve block not resolved at time of post operative discharge
== END 2021-09-29 14:05 | disposition home or self-care (01) ==
PROVIDERS: PCP Nurse Practitioner Family; Visit Provider Student in an Organized Health Care Education/Training Program
PROC: (CPT 29827; principal; 2021-09-29 07:30)
DX: M75.101 Unspecified rotator cuff tear or rupture of right shoulder, not specified as traumatic (principal); M75.51 Bursitis of right shoulder; M75.21 Bicipital tendinitis, right shoulder; M25.311 Other instability, right shoulder; G47.33 Obstructive sleep apnea (adult) (pediatric); I10 Essential (primary) hypertension
CPT/HCPCS: 29806; 29827; 29828; 29826; 29823; 76942; J0171; J0690; J1100; J1885; J2250; J2405; J2704

== ENCOUNTER 2023-06-04 03:53 | Outpatient (CLI) | payer BC, SELFPAY ==
[2023-06-04 14:11] LABS: CREATININE 1.4 mg/dL (0.70-1.30); Potassium 3.9 mmol/L (3.5-5.1); Uric Acid 4.8 mg/dL (3.5-7.2)
== END 2023-06-04 03:54 | disposition home or self-care (01) ==
LOC: LBO 03:53
PROVIDERS: PCP Nurse Practitioner Family; Visit Provider Nurse Practitioner Family
DX: I10 Essential (primary) hypertension (principal); M10.9 Gout, unspecified
CPT/HCPCS: 36415; 82565; 84132; 84550

== ENCOUNTER 2023-06-14 15:15 | Outpatient (REF) | payer BC, SELFPAY ==
[2023-06-14 20:49] LABS: Source Nasopharynx
[2023-06-14 21:30] LABS: COVID-19 PCR Negative (Negative)
== END 2023-06-14 15:16 | disposition home or self-care (01) ==
LOC: LBN 15:15
PROVIDERS: PCP Nurse Practitioner Family; Visit Provider Physician Assistant Medical
DX: R05.8 Other specified cough (principal); Z20.822 Contact with and (suspected) exposure to COVID-19
CPT/HCPCS: 87635

== ENCOUNTER → 2023-06-14 16:17 | Outpatient (CLI) | payer BC, SELFPAY ==
--- NOTE | 2023-06-14 | DI.RAD_ITS ---
Exam(s) XR CHEST 2V PA LATERAL EXAM: XR CHEST 2V PA LATERAL CLINICAL HISTORY: COUGH, R05.9 TECHNIQUE: 2D digital imaging was performed of the chest. Two images were obtained. PA and lateral views were obtained. COMPARISON: CR CHEST 2 VIEWS PA,LAT from 05/15/2014 FINDINGS: MEDIASTINUM: Normal. HEART: Normal. PULMONARY VASCULATURE: Normal. LUNGS: Clear. PLEURAL SPACE: No pleural effusion or pneumothorax. BONE:Within normal limits for the patient's age. OTHER FINDINGS:Normal. IMPRESSION: No acute pulmonary findings. DATA REPOSITORY: RADIATION DOSE DELIVERED:
== END ==
PROVIDERS: PCP Nurse Practitioner Family; Visit Provider Physician Assistant Medical
DX: R05.9 Cough, unspecified (principal)
CPT/HCPCS: 71046

== ENCOUNTER 2024-04-16 03:18 | Outpatient (CLI) | payer BC, SELFPAY ==
[2024-04-16 13:59] LABS: Anion Gap 9.2 mmol/L (3-11); BUN 16 mg/dL (7-18); CO2 26.8 mmol/L (21.0-32.0); CREATININE 1.4 mg/dL (0.70-1.30); Calcium 9.8 mg/dL (8.5-10.1); Calculated LDL 112 mg/dL (<100); Chloride 107 mmol/L (98-107); Cholesterol 197 mg/dL (<200); Estimated GFR 57.54 (mL/min/1.73m2); Glucose 92 mg/dL (74-106); HDL Cholesterol 55 mg/dL (40-60); Potassium 4.2 mmol/L (3.5-5.1); Sodium 143 mmol/L (136-145); Triglyceride 151 mg/dL (<150)
[2024-04-16 14:05] LABS: Hemoglobin A1C 5.4 % (<5.7)
[2024-04-16 14:17] LABS: Uric Acid 5.5 mg/dL (3.5-7.2)
== END 2024-04-16 03:19 | disposition home or self-care (01) ==
LOC: LBO 03:18
PROVIDERS: PCP Nurse Practitioner Family; Visit Provider Nurse Practitioner Family
DX: Z13.220 Encounter for screening for lipoid disorders (principal); I10 Essential (primary) hypertension; Z13.1 Encounter for screening for diabetes mellitus; M1A.9XX0 Chronic gout, unspecified, without tophus (tophi)
CPT/HCPCS: 36415; 80048; 80061; 83036; 84550